=== PATIENT | female | born 1940 | race African-American/Black ===

== ENCOUNTER 2022-04-22 06:06 | Day surgery (SDC) | payer OTHER ==
[2022-04-21 14:24] VITALS: BMI 32.9
[2022-04-22] MEDS ORDERED: EPINEPHrine 1:1,000 1,000 MCG/ML ML ONE (07:05)
[2022-04-22] MEDS ORDERED: MIDAZOLAM HCL 2 MG/2 ML SINGLE DOSE VIAL ONE (07:46)
[2022-04-22] MEDS ORDERED: ROPIVACAINE HCL/PF 100 MG/20 ML VIAL ONE (07:46)
[2022-04-22] MEDS ORDERED: SUCCINYLCHOLINE CHLORIDE 200 MG/10 ML SYRINGE ONE (08:00)
[2022-04-22] MEDS ORDERED: LIDOCAINE HCL 2% JELLY 10 ML CARTRIDGE ONE (08:00)
[2022-04-22] MEDS ORDERED: PROPOFOL 40 ML ONE (08:00)
[2022-04-22] MEDS ORDERED: ROCURONIUM BROMIDE 50 MG/5 ML SYRINGE ONE (08:23)
[2022-04-22] MEDS ORDERED: ESMOLOL HCL 100,000 MCG/10 ML VIAL ONE (08:39)
[2022-04-22] MEDS ORDERED: NEOSTIGMINE METHYLSULFATE 0.5 MG/1 ML - 10 ML MDV ONE (08:56)
[2022-04-22] MEDS ORDERED: oxyCODONE HCL 5 MG TABLET PO PRN ×2 (09:14)
[2022-04-22] MEDS ORDERED: ONDANSETRON 4 MG/2 ML VIAL IVPUSH PRN (09:14)
[2022-04-22 11:04] VITALS: PULSE 72; RESP 20; TEMP 97.8
[2022-04-22 15:27] VITALS: BP 156/74
== END 2022-04-22 12:55 | disposition home or self-care (01) ==
LOC: FASU 06:06
PROVIDERS: ATTEND Orthopaedic Surgery
PROC: 0RNJ4ZZ Release Right Shoulder Joint, Percutaneous Endoscopic Approach (ICD-10-PCS; 2022-04-22)
PROC: 0LM14ZZ Reattachment of Right Shoulder Tendon, Percutaneous Endoscopic Approach (ICD-10-PCS; 2022-04-22)
PROC: 0LS34ZZ Reposition Right Upper Arm Tendon, Percutaneous Endoscopic Approach (ICD-10-PCS; 2022-04-22)
PROC: 0RQJ4ZZ Repair Right Shoulder Joint, Percutaneous Endoscopic Approach (ICD-10-PCS; 2022-04-22)
PROC: 0RBJ4ZZ Excision of Right Shoulder Joint, Percutaneous Endoscopic Approach (ICD-10-PCS; principal; 2022-04-22 08:40)
DX: M75.121 Complete rotator cuff tear or rupture of right shoulder, not specified as traumatic (principal); M75.01 Adhesive capsulitis of right shoulder; M75.41 Impingement syndrome of right shoulder; S43.431A Superior glenoid labrum lesion of right shoulder, initial encounter; S46.121A Laceration of muscle, fascia and tendon of long head of biceps, right arm, initial encounter; X58.XXXA Exposure to other specified factors, initial encounter; Y93.9 Activity, unspecified; Y92.9 Unspecified place or not applicable
CPT/HCPCS: 29807; 29823; 29826; 29827; C9781; 82962; 94760; C1889